=== PATIENT | female | born 1965 | race African-American/Black ===

== ENCOUNTER 2022-07-22 22:45 | Emergency (ER) | payer MEDICAID ==
[~2022-07-22] VITALS: Ht 165.1 cm; Wt 77.3 kg
[~2022-07-22 22:45] MED LIST: ALBU8.5H8 IH; BUPR-345 PO; GABA-1216 PO; IPRAHFA IH; TOPI100T37 PO
[2022-07-22] MEDS ORDERED: MethylPREDNISolone SOD SUCC 125 MG/2 ML VIAL IVP ONE (23:00)
[2022-07-22] MEDS ORDERED: IPRATROPIUM BROMIDE 0.5 MG/2.5 ML NEB SOLUTION NEB ONE ×2 (23:00→23:15)
[2022-07-22] MEDS ORDERED: ALBUTEROL SULFATE 2.5 MG/0.5 ML NEB SOLUTION NEB ONE ×2 (23:00→23:15)
[2022-07-22 23:15] LABS: EOSINOPHILS % (AUTO) 3.6 % (1.0-6.0); HEMOGLOBIN 12.8 g/dL (12.0-16.0); LYMPHOCYTES # (AUTO) 1.3 K/uL (1.0-4.8); LYMPHOCYTES % (AUTO) 22.8 % (22.0-44.0); MEAN CORPUSCULAR HEMOGLOBIN 28.5 pg (26.0-34.0); MEAN CORPUSCULAR HGB CONC 32.9 G/dL (31.0-37.0); MEAN CORPUSCULAR VOLUME 87 fL (80-100); MONOCYTES # (AUTO) 0.4 K/uL (0.1-1.0); MONOCYTES % (AUTO) 6.4 % (2.0-9.0); NEUTROPHILS # (AUTO) 3.9 K/uL (1.8-7.7); NEUTROPHILS % (AUTO) 66.2 % (40.0-70.0); PLATELET COUNT (AUTO) 312 K/uL (150-450); RED CELL DISTRIBUTION WIDTH 15.7 % (11.5-14.5)
[2022-07-22 23:24] LABS: ANION GAP 9 mmol/L (8-16); CALCIUM, TOTAL 9.4 mg/dL (8.8-10.5); CARBON DIOXIDE 26 mmol/L (22-29); CHLORIDE 104 mmol/L (98-107); CREATININE 0.66 mg/dL (0.60-1.30); GLOMERULAR FILTR. RATE CALC > 60 mL/min (>60); GLUCOSE,RANDOM 125 mg/dL (70-110); POTASSIUM 4.4 mmol/L (3.5-5.1); SODIUM SERUM 139 mmol/L (136-145)
[2022-07-22 23:34] LABS: ALANINE AMINOTRANSFERASE 19 U/L (12-78); ALBUMIN 3.5 g/dL (3.4-5.0); ALKALINE PHOSPHATASE 79 U/L (46-116); ASPARTATE AMINOTRANSFERASE 23 U/L (15-37); BILIRUBIN,TOTAL 0.3 mg/dL (0.1-1.0); TOTAL PROTEIN, SERUM 7.3 g/dL (6.4-8.2)
[2022-07-23] MEDS ORDERED: ALBU18HF12 IH (00:31)
[2022-07-23] MEDS ORDERED: FLUT110H IH (00:31)
[2022-07-23] MEDS ORDERED: IPRA3AMP24 NEB (00:31)
[2022-07-23] MEDS ORDERED: MONT-35 PO (00:31)
[2022-07-23] MEDS ORDERED: IPRAHFA IH (00:31)
[2022-07-23] MEDS ORDERED: TIOT185 IH (00:31)
[2022-07-23 00:32] VITALS: BP 129/81
== END 2022-07-23 00:51 | disposition home or self-care (01) ==
LOC: EMS 22:54
DX: J45.901 Unspecified asthma with (acute) exacerbation (principal); J44.1 Chronic obstructive pulmonary disease with (acute) exacerbation; J45.909 Unspecified asthma, uncomplicated; G43.909 Migraine, unspecified, not intractable, without status migrainosus; F17.210 Nicotine dependence, cigarettes, uncomplicated; F14.90 Cocaine use, unspecified, uncomplicated
CPT/HCPCS: 99285; 96374; 71045; 80053; 84484; 85025; 94640; 93005; J2930; 94644; 36415-L1; 36415-TC; J7613

== ENCOUNTER 2022-11-10 14:13 | Emergency (ER) | payer MEDICAID ==
[~2022-11-10] VITALS: Ht 170.2 cm; Wt 86.4 kg
[~2022-11-10 14:13] MED LIST changes: +ALBU18HF12 IH; +FLUT12AE19 IH; +IPRA3AMP24 NEB; +MONT-35 PO; +TIOT185 IH
[2022-11-10 14:27] VITALS: TEMP 98.4
[2022-11-10 14:40] VITALS: PULSE 89; RESP 32; O2SAT 98
[2022-11-10] MEDS ORDERED: IPRATROPIUM BROMIDE 0.5 MG/2.5 ML NEB SOLUTION NEB ONE ×2 (14:45→16:45)
[2022-11-10] MEDS ORDERED: MethylPREDNISolone SOD SUCC 125 MG/2 ML VIAL IVP ONE (14:45)
[2022-11-10] MEDS ORDERED: ALBUTEROL SULFATE 2.5 MG/0.5 ML 5 ML NEB SOLUTION NEB ONE (14:45)
[2022-11-10 15:26] LABS: EOSINOPHILS % (AUTO) 7.8 % (1.0-6.0); HEMOGLOBIN 12.3 g/dL (12.0-16.0); LYMPHOCYTES # (AUTO) 1.7 K/uL (1.0-4.8); LYMPHOCYTES % (AUTO) 42.2 % (22.0-44.0); MEAN CORPUSCULAR HEMOGLOBIN 28.7 pg (26.0-34.0); MEAN CORPUSCULAR HGB CONC 32.5 G/dL (31.0-37.0); MEAN CORPUSCULAR VOLUME 88 fL (80-100); MONOCYTES # (AUTO) 0.5 K/uL (0.1-1.0); MONOCYTES % (AUTO) 11.6 % (2.0-9.0); NEUTROPHILS # (AUTO) 1.5 K/uL (1.8-7.7); NEUTROPHILS % (AUTO) 37.4 % (40.0-70.0); PLATELET COUNT (AUTO) 207 K/uL (150-450); RED BLOOD CELL COUNT(AUTO) 4.31 MIL/uL (4.00-5.20); WHITE BLOOD COUNT (AUTO) 4.1 K/uL (4.5-11.0)
[2022-11-10 15:37] LABS: ANION GAP 8 mmol/L (8-16); CARBON DIOXIDE 30 mmol/L (22-29); CHLORIDE 107 mmol/L (98-107); CREATININE 0.67 mg/dL (0.60-1.30); GLOMERULAR FILTR. RATE CALC > 60 mL/min (>60); GLUCOSE,RANDOM 120 mg/dL (70-110); POTASSIUM 3.9 mmol/L (3.5-5.1); SODIUM SERUM 145 mmol/L (136-145); UREA NITROGEN, BLOOD 14 mg/dL (7-18)
[2022-11-10 15:40] VITALS: PULSE 95; RESP 24; O2SAT 99
[2022-11-10 15:45] LABS: TROPONIN I-HIGH SENSITIVITY 5 ng/L (<51)
[2022-11-10 15:47] LABS: B-TYPE NATRIURETIC PEPTIDE 8 pg/mL (0-100)
[2022-11-10 15:56] LABS: COVID AG,FIA SOURCE NASAL SWAB
[2022-11-10 16:03] LABS: ALANINE AMINOTRANSFERASE 25 U/L (12-78); ALBUMIN 3.5 g/dL (3.4-5.0); ALKALINE PHOSPHATASE 82 U/L (46-116); ASPARTATE AMINOTRANSFERASE 27 U/L (15-37); BILIRUBIN,TOTAL 0.4 mg/dL (0.1-1.0); CREATINE KINASE, TOTAL ONLY 181 U/L (26-192)
[2022-11-10 16:15] LABS: SARS-COV2 (COVID) ANTIGEN,FIA Negative (Negative)
[2022-11-10 16:17] LABS: INFLUENZA TYPE A NEGATIVE FOR TYPE A (NEGATIVE); INFLUENZA TYPE B NEGATIVE FOR TYPE B (NEGATIVE)
[2022-11-10] MEDS ORDERED: ALBUTEROL SULFATE 2.5 MG/0.5 ML NEB SOLUTION NEB ONE (16:45)
[2022-11-10 16:54] VITALS: PULSE 93; RESP 23; O2SAT 94
[2022-11-10 17:09] VITALS: PULSE 100; RESP 21; O2SAT 96
[2022-11-10] MEDS ORDERED: IPRA3AMP24 NEB (17:56)
[2022-11-10] MEDS ORDERED: PRED-554 PO (17:56)
[2022-11-10] MEDS ORDERED: BENZ-227 PO (17:56)
[2022-11-10] MEDS ORDERED: ALBU2.5V39 NEB (17:56)
[2022-11-10 18:30] VITALS: BP 134/86; PULSE 93; RESP 20
== END 2022-11-10 18:55 | disposition home or self-care (01) ==
LOC: EMS 14:13
DX: J44.1 Chronic obstructive pulmonary disease with (acute) exacerbation (principal); J96.90 Respiratory failure, unspecified, unspecified whether with hypoxia or hypercapnia; G43.909 Migraine, unspecified, not intractable, without status migrainosus; F17.210 Nicotine dependence, cigarettes, uncomplicated; F14.90 Cocaine use, unspecified, uncomplicated; Z98.890 Other specified postprocedural states; Z20.822 Contact with and (suspected) exposure to COVID-19
CPT/HCPCS: 99291; 96374; 71045; 87426; 80053; 82550; 83735; 83880; 84484; 85025; 87804; 36415; 94644; 93005; J2930; Q9967; 94640; J7613

== ENCOUNTER 2022-12-24 06:58 | Emergency (ER) | payer MEDICAID ==
[~2022-12-24] VITALS: Ht 165.1 cm; Wt 84.1 kg
[~2022-12-24 06:58] MED LIST changes: +ALBU2.5V39 NEB; +BENZ-227 PO; -BUPR-345 PO; -GABA-1216 PO; +PRED-554 PO
[2022-12-24 07:08] VITALS: TEMP 98.3
[2022-12-24] MEDS ORDERED: ALBUTEROL SULFATE 2.5 MG/0.5 ML NEB SOLUTION NEB ONE (08:15)
[2022-12-24] MEDS ORDERED: IPRATROPIUM BROMIDE 0.5 MG/2.5 ML NEB SOLUTION NEB ONE (08:15)
[2022-12-24] MEDS ORDERED: KETOROLAC TROMETHAMINE 60 MG/2 ML VIAL IM ONE (08:45)
[2022-12-24 08:54] VITALS: PULSE 73; RESP 18; O2SAT 93
[2022-12-24 09:10] VITALS: PULSE 70; RESP 18; O2SAT 100
[2022-12-24] MEDS ORDERED: MONT-35 PO (09:41)
[2022-12-24] MEDS ORDERED: IBUP-1554 PO (09:41)
[2022-12-24] MEDS ORDERED: TIOT185 IH (09:41)
[2022-12-24] MEDS ORDERED: IPRA3AMP24 NEB (09:41)
[2022-12-24] MEDS ORDERED: PRED-554 PO (09:41)
[2022-12-24] MEDS ORDERED: ALBU18HF12 IH (09:41)
[2022-12-24] MEDS ORDERED: FLUT12AE19 IH (09:41)
[2022-12-24] MEDS ORDERED: TRAM-559 PO (09:41)
[2022-12-24 09:45] VITALS: BP 139/90; PULSE 86; RESP 16
== END 2022-12-24 09:50 | disposition home or self-care (01) ==
LOC: EMS 07:00
DX: S13.4XXA Sprain of ligaments of cervical spine, initial encounter (principal); S30.0XXA Contusion of lower back and pelvis, initial encounter; J44.9 Chronic obstructive pulmonary disease, unspecified; G43.909 Migraine, unspecified, not intractable, without status migrainosus; F17.210 Nicotine dependence, cigarettes, uncomplicated; F14.90 Cocaine use, unspecified, uncomplicated; V49.88XA Car occupant (driver) (passenger) injured in other specified transport accidents, initial encounter; Y93.89 Activity, other specified; Y92.89 Other specified places as the place of occurrence of the external cause; Y99.8 Other external cause status
CPT/HCPCS: 99285; 70450; 71045; 94640; 72170; 96372; J1885; J7613

== ENCOUNTER 2023-04-16 02:51 | Emergency (ER) | payer MEDICAID ==
[~2023-04-16] VITALS: Ht 165.1 cm; Wt 86.0 kg
[~2023-04-16 02:51] MED LIST changes: +IBUP-1554 PO; +TRAM-559 PO
[2023-04-16 02:57] VITALS: BP 125/73; PULSE 86; RESP 18; TEMP 97.7
[2023-04-16] MEDS ORDERED: FLUT12AE20 IH (03:40)
[2023-04-16] MEDS ORDERED: ALBU2.5V39 NEB (03:40)
[2023-04-16] MEDS ORDERED: IPRA3AMP24 NEB (03:40)
[2023-04-16] MEDS ORDERED: ALBU18HF12 IH (03:40)
== END 2023-04-16 03:56 | disposition home or self-care (01) ==
LOC: EMS 02:54
DX: J44.1 Chronic obstructive pulmonary disease with (acute) exacerbation (principal); F17.210 Nicotine dependence, cigarettes, uncomplicated; Z98.890 Other specified postprocedural states
CPT/HCPCS: 99281; Z7502